=== PATIENT | female | born 1990 | race Caucasian/White ===

== ENCOUNTER 2017-01-21 08:12 | Emergency (ER) | payer OTHER ==
[2017-01-21 09:51] LABS: HEMOGLOBIN 15.3 gm/dl (12.3-15.3); RED BLOOD COUNT 5.01 M/UL (4.00-5.10)
[2017-01-21 10:21] LABS: BUN/CREATININE RATIO 18 (0-10)
== END 2017-01-21 12:20 | disposition home or self-care (01) ==
LOC: ER1 08:12
PROVIDERS: Physician Assistant
DX: N39.0 Urinary tract infection, site not specified (principal); R11.2 Nausea with vomiting, unspecified; F17.200 Nicotine dependence, unspecified, uncomplicated
CPT/HCPCS: 36415; 80053; 81001; 84703; 85025; 87086; 96361; 96374; 96375; 99284; J0696; J2405; J7050